=== PATIENT | female | born 1950 | race Caucasian/White ===

== ENCOUNTER 2020-10-10 19:17 | Emergency (ER) | payer MEDICARE, OTHER ==
[~2020-10-10 19:17] MED LIST: ACID CONTROLLER20 MG PO; AMLODIPINE BESY10 MG PO; AMOXICILLIN500 M1 PO; ATORVASTATIN CA40 MG PO; CALTRATE 600+D1 EAC2 PO; CEFUROXIME250 MG PO; CLARITIN 10MG T10 MG PO; FLUOXETINE HCL40 MG PO; LIPITOR40 MG PO; LOPRESSOR 50 MG50 MG PO; NORCO 7.5-3251 EACH PO; NOVOLIN N100 UNIT/1 SQ; NOVOLOG100 UNIT/1 SQ; ZESTRIL20 MG PO
[2020-10-10 19:52] LABS: HEMOGLOBIN 11.7 gm/dl (12.3-15.3); RED BLOOD COUNT 3.79 M/UL (4.00-5.10); WHITE BLOOD COUNT 10.9 K/UL (4.5-11.0)
[2020-10-10 20:15] LABS: BUN/CREATININE RATIO 22 (0-10)
[2020-10-11] MEDS ORDERED: K-DUR TAB 20 M20 MEQ PO (01:10)
[2020-10-11] MEDS ORDERED: LASIX20 MG PO (01:10)
== END 2020-10-11 01:20 | disposition home or self-care (01) ==
LOC: ER1 19:17
PROVIDERS: Emergency Medicine
DX: J90 Pleural effusion, not elsewhere classified (principal); E11.9 Type 2 diabetes mellitus without complications; I10 Essential (primary) hypertension; Z20.822 Contact with and (suspected) exposure to COVID-19
CPT/HCPCS: 0240U; 36600; 71045; 80053; 82550; 82553; 82803; 82962; 83690; 83735; 83874; 83880; 84484; 85025; 85379; 93005; 99285; Q9967

== ENCOUNTER → 2020-10-20 | Outpatient (CLI) | payer MEDICARE, OTHER ==
[~2020-10-20] MED LIST changes: +K-DUR TAB 20 M20 MEQ PO; +LASIX20 MG PO
== END ==
LOC: HEART 5 07:30 → ECHO 11-11 12:00 → NM 11-11 13:00
DX: I20.8 Other forms of angina pectoris (principal); R06.02 Shortness of breath
CPT/HCPCS: 78452; A9502; J2785

== ENCOUNTER → 2020-10-22 | Outpatient (CLI) | payer MEDICARE, OTHER | LOC: HEART 5 11:18 | DX: I20.8 Other forms of angina pectoris (principal); R06.02 Shortness of breath; I07.1 Rheumatic tricuspid insufficiency | CPT/HCPCS: 93306 ==

== ENCOUNTER → 2020-11-03 | Outpatient (CLI) | payer MEDICARE, OTHER | LOC: EXRD 08:47 | DX: R74.8 Abnormal levels of other serum enzymes (principal); K76.0 Fatty (change of) liver, not elsewhere classified | CPT/HCPCS: 76705 ==

== ENCOUNTER → 2020-11-05 | Outpatient (CLI) | payer MEDICARE, OTHER | LOC: MAMO 13:36 | DX: Z13.820 Encounter for screening for osteoporosis (principal); Z78.0 Asymptomatic menopausal state; M81.0 Age-related osteoporosis without current pathological fracture | CPT/HCPCS: 77080 ==

== ENCOUNTER → 2021-05-12 | Outpatient (CLI) | payer MEDICARE, OTHER | LOC: EXRD 13:51 | DX: R07.81 Pleurodynia (principal); W19.XXXA Unspecified fall, initial encounter | CPT/HCPCS: 71101 ==

== ENCOUNTER 2021-05-24 14:08 | Emergency (ER) | payer MEDICARE, OTHER ==
[2021-05-24 14:47] LABS: HEMOGLOBIN 14.5 gm/dl (12.3-15.3); RED BLOOD COUNT 4.68 M/UL (4.00-5.10); WHITE BLOOD COUNT 13.7 K/UL (4.5-11.0)
[2021-05-24 15:07] LABS: BUN/CREATININE RATIO 24 (0-10)
[2021-05-24] MEDS ORDERED: ZOFRAN 4 MG TAB4 MG PO (17:18)
[2021-05-26 07:11] LABS: CEA 11.9 ng/mL (0.0-4.7)
== END 2021-05-24 17:08 | disposition home or self-care (01) ==
LOC: ER1 14:08
PROVIDERS: Emergency Medicine; Physician Assistant
DX: K86.9 Disease of pancreas, unspecified (principal); K74.60 Unspecified cirrhosis of liver; E11.9 Type 2 diabetes mellitus without complications; E78.5 Hyperlipidemia, unspecified; Z90.49 Acquired absence of other specified parts of digestive tract
CPT/HCPCS: 80053; 82378; 83690; 85025; 86301; 96374; 96375; 99284; J2270; J2405; Q9967